=== PATIENT | female | born 1990 | race American Indian/Alaskan Native ===

== ENCOUNTER 2017-08-06 22:22 | Emergency (ER) | payer OTHER ==
[2017-08-06 22:56] VITALS: BP 138/71
[2017-08-06] MEDS ORDERED: TYLENOL PO ONE (22:57)
[2017-08-07 00:22] LABS: Basophils % (Auto) 0.4 % (0.0-1.8); Hematocrit 37.5 % (30.3-42.9); Hemoglobin 12.2 gm/dl (10.1-14.3); Mean Corpuscular HGB Conc 32 % (30-34); Mean Corpuscular Hemoglobin 27 pg (28-32); Mean Corpuscular Volume 84 fl (79-97); Platelet Count 179 K/mm3 (140-440); Red Blood Count 4.46 M/mm3 (3.65-5.03); Red Cell Distribution Width 13.5 % (13.2-15.2); White Blood Count 9.5 K/mm3 (4.5-11.0)
--- NOTE | 2017-08-07 00:47 | Ultrasound Report ---
FINAL REPORT PROCEDURE: US OB TRANSVAGINAL TECHNIQUE: Real-time transabdominal and transvaginal sonography of the uterus, placenta, amniotic fluid, adnexa, and fetus was performed with image documentation. Measurements were obtained to determine age/size. M-mode Doppler was used to document heartbeat. CPT 92683 and 46963 HISTORY: vag bleed COMPARISON: No prior studies are available for comparison. FINDINGS: ADDITIONAL GESTATION: None. CRL: 11 mm, which corresponds to a gestational age of: 7 weeks, 3 days. Yolk Sac: Normal. Embryonic Cardiac Activity: 176 beats per minute Gestational Sac: Normal. Amniotic fluid: Normal. Cervix: Normal. Right Ovary: Normal. Left Ovary: Normal. Estimated delivery date: 03/23/2018 Uterus and adnexa: Normal. IMPRESSION: 1. Single live intrauterine gestation at approximately 7 weeks, 3 days. 2. EDC by US 03/23/2018 3. Complete anatomic survey at 18-20 weeks suggested.
--- NOTE | 2017-08-07 00:49 | Ultrasound Report ---
FINAL REPORT PROCEDURE: Obstetrical ultrasound, transabdominal and transvaginal TECHNIQUE: Real-time transabdominal and transvaginal sonography of the uterus, placenta, amniotic fluid, adnexa, and fetus was performed with image documentation. Measurements were obtained to determine age/size. M-mode Doppler was used to document heartbeat. CPT 36699 and 28784 HISTORY: vag bleed COMPARISON: No prior studies are available for comparison. FINDINGS: ADDITIONAL GESTATION: None. CRL: 11 mm, which corresponds to a gestational age of: 7 weeks, 3 days. Yolk Sac: Normal. Embryonic Cardiac Activity: 176 beats per minute Gestational Sac: Normal. Amniotic fluid: Normal. Cervix: Normal. Right Ovary: Normal. Left Ovary: Normal. Estimated delivery date: 03/23/2018 Uterus and adnexa: Normal. IMPRESSION: 1. Single live intrauterine gestation at approximately 7 weeks, 3 days. 2. EDC by US 03/23/2018 3. Complete anatomic survey at 18-20 weeks suggested.
== END 2017-08-07 00:45 | disposition left against medical advice (07) ==
LOC: ED 22:22
DX: R10.9 Unspecified abdominal pain (principal); R07.9 Chest pain, unspecified; Z53.21 Procedure and treatment not carried out due to patient leaving prior to being seen by health care provider
CPT/HCPCS: 36415; 76801; 76817; 84702; 85025; 86850; 86900; 86901; 93005; 93010

== ENCOUNTER 2017-12-13 19:17 | Emergency (ER) | payer OTHER ==
[2017-12-13 19:30] VITALS: BP 152/83
[2017-12-13] MEDS ORDERED: XOPENEX IH ONE ×2 (19:31→19:34)
[2017-12-13 20:21] LABS: Basophils % (Auto) 0.2 % (0.0-1.8); Eosinophils # (Auto) 0.1 K/mm3 (0.0-0.4); Eosinophils % (Auto) 1.6 % (0.0-4.3); Hematocrit 35.7 % (30.3-42.9); Hemoglobin 11.8 gm/dl (10.1-14.3); Lymphocytes # (Auto) 1.1 K/mm3 (1.2-5.4); Lymphocytes % (Auto) 13.2 % (13.4-35.0); Mean Corpuscular HGB Conc 33 % (30-34); Mean Corpuscular Hemoglobin 28 pg (28-32); Mean Corpuscular Volume 84 fl (79-97); Monocytes # (Auto) 0.8 K/mm3 (0.0-0.8); Monocytes % (Auto) 9.2 % (0.0-7.3); Platelet Count 153 K/mm3 (140-440); Red Blood Count 4.24 M/mm3 (3.65-5.03); Red Cell Distribution Width 13.7 % (13.2-15.2)
[2017-12-13 20:52] LABS: BUN/Creatinine Ratio 8; Blood Urea Nitrogen 4 mg/dL (7-17); Hemolysis Index 4
== END 2017-12-14 01:44 | disposition left against medical advice (07) ==
LOC: ED 19:17
DX: O26.892 Other specified pregnancy related conditions, second trimester (principal); R06.02 Shortness of breath; Z53.21 Procedure and treatment not carried out due to patient leaving prior to being seen by health care provider; Z3A.26 26 weeks gestation of pregnancy
CPT/HCPCS: 36415; 80048; 84702; 85025; 93005; 93010; 94640

== ENCOUNTER 2017-12-29 06:53 | Outpatient (CLI) | payer OTHER ==
[2017-12-29 07:20] VITALS: BP 131/77
[2017-12-29] MEDS ORDERED: LACTATED RINGERS 1,000 ML IV ONE (07:23)
[2017-12-29 08:18] LABS: Bacteria,Urine 1+ /HPF (Negative); Bilirubin,Urine NEG (Negative); Blood,Urine NEG (Negative); Color,Urine Yellow (Yellow); Mucus,Urine FEW /HPF; Nitrite,Urine NEG (Negative); Protein,Urine <15 mg/dL mg/dL (Negative); Urobilinogen,Urine < 2.0 mg/dL (<2.0); WBC,Urine < 1.0 /HPF (0.0-6.0)
== END 2017-12-29 08:00 | disposition home or self-care (01) ==
LOC: TRG 06:53
PROVIDERS: ATTEND Obstetrics & Gynecology
DX: O47.03 False labor before 37 completed weeks of gestation, third trimester (principal); Z3A.28 28 weeks gestation of pregnancy
CPT/HCPCS: 59025; 81001

== ENCOUNTER 2018-01-05 15:20 | Outpatient (CLI) | payer OTHER | END 2018-01-05 16:50 | disposition home or self-care (01) | LOC: TRG 15:20 → LABHHL 15:20 → TRG 16:28 → EDSTATUS 16:29 → TRG 16:50 | PROVIDERS: ATTEND Obstetrics & Gynecology | DX: O36.0130 Maternal care for anti-D [Rh] antibodies, third trimester, not applicable or unspecified (principal); Z3A.29 29 weeks gestation of pregnancy | CPT/HCPCS: 86850; 86900; 86901; 96372; J2790 ==

== ENCOUNTER 2018-01-06 11:14 | Outpatient (CLI) | payer OTHER ==
[2018-01-06 11:32] VITALS: BP 115/71
[2018-01-06 11:59] LABS: Bilirubin,Urine NEG (Negative); Blood,Urine NEG (Negative); Color,Urine Yellow (Yellow); Mucus,Urine FEW /HPF; Nitrite,Urine NEG (Negative); Protein,Urine <15 mg/dL mg/dL (Negative); Urobilinogen,Urine < 2.0 mg/dL (<2.0); WBC,Urine < 1.0 /HPF (0.0-6.0)
--- NOTE | 2018-01-06 12:27 | Ultrasound Report ---
ULTRASOUND OB LIMITED History: well being, evaluate amniotic fluid Technique: Transabdominal ultrasound with Doppler interrogation. Gestation: Single Position: Breech Amniotic Fluid: Normal [place] = 11.6 cm Heart Rate: 138 BPM
== END 2018-01-06 12:40 | disposition home or self-care (01) ==
LOC: TRG 11:14
PROVIDERS: ATTEND Obstetrics & Gynecology
DX: O32.1XX0 Maternal care for breech presentation, not applicable or unspecified (principal); O47.03 False labor before 37 completed weeks of gestation, third trimester; Z3A.29 29 weeks gestation of pregnancy
CPT/HCPCS: 59025; 76815; 81001

== ENCOUNTER 2018-03-02 17:02 | Outpatient (CLI) | payer OTHER ==
[2018-03-02 18:22] LABS: Hematocrit 36.6 % (30.3-42.9); Hemoglobin 11.8 gm/dl (10.1-14.3); Mean Corpuscular HGB Conc 32 % (30-34); Mean Corpuscular Hemoglobin 27 pg (28-32); Mean Corpuscular Volume 85 fl (79-97); Red Blood Count 4.32 M/mm3 (3.65-5.03); Red Cell Distribution Width 14.1 % (13.2-15.2)
[2018-03-02 18:31] LABS: Bacteria,Urine 1+ /HPF (Negative); Bilirubin,Urine NEG (Negative); Blood,Urine NEG (Negative); Color,Urine Yellow (Yellow); Mucus,Urine 3+ /HPF; Urobilinogen,Urine < 2.0 mg/dL (<2.0)
[2018-03-02 18:40] LABS: Alanine Aminotransferase 11 units/L (7-56)
[2018-03-02 18:48] VITALS: BP 142/73
[2018-03-02 18:54] LABS: Uric Acid 2.8 mg/dL (3.5-7.6)
[2018-03-02 19:20] LABS: Platelet Count 139 K/mm3 (140-440)
[2018-03-03 22:15] LABS: Creatinine 24 Hour,Urine 1.5 (0.8-2.8); Creatinine,Urine 85.5 mg/dL (0.1-20.0)
== END 2018-03-02 19:24 | disposition home or self-care (01) ==
LOC: TRG 17:02
PROVIDERS: ATTEND Obstetrics & Gynecology
DX: O47.1 False labor at or after 37 completed weeks of gestation (principal); Z3A.37 37 weeks gestation of pregnancy
CPT/HCPCS: 36415; 81001; 82565; 83615; 84450; 84460; 84550; 85027